=== PATIENT | female | born 1965 ===

== ENCOUNTER 2017-01-07 22:45 | Emergency (ER) | payer SELFPAY ==
[2017-01-08 11:45] LABS: RBC URINE 172 /hpf (0-3); URINE BACTERIA RARE (<OCC); URINE BILIRUBIN NEGATIVE (NEGATIVE); URINE BLOOD 3+ (NEGATIVE); URINE COLOR Yellow (YELLOW); URINE GLUCOSE (UA) NORMAL (Normal); URINE KETONE NEGATIVE (NEGATIVE); URINE LEUKOCYTE ESTERASE 3+ Leu/uL (Negative); URINE PROTEIN NEGATIVE (NEGATIVE); URINE UROBILINOGEN NORMAL mg/dL (0.2-1.0); WBC URINE 215 /hpf (0-5)
== END 2017-01-08 01:50 | disposition home or self-care (01) ==
LOC: C.ER 22:45
DX: N39.0 Urinary tract infection, site not specified (principal)